=== PATIENT | male | born 1975 | race African-American/Black ===

== ENCOUNTER 2016-11-19 12:11 | Emergency (ER) | payer MEDICAID ==
[~2016-11-19] VITALS: Ht 170.2 cm; Wt 100.0 kg
[2016-11-19 12:24] VITALS: BP 143/90
== END 2016-11-19 15:26 | disposition left against medical advice (07) ==
LOC: ER 14:34
DX: Z53.21 Procedure and treatment not carried out due to patient leaving prior to being seen by health care provider (principal)